=== PATIENT | female | born 1985 ===

== ENCOUNTER 2022-08-30 04:41 | Emergency (ER) | payer MEDICAID, SELFPAY ==
[2022-08-30 04:53] VITALS: BP 131/83; PULSE 70; RESP 18; TEMP 37; O2SAT 100; BMI 31.2
--- NOTE | 2022-08-30 07:32 | PC.NURSE ---
PT NOT IN THE WR OR IN CLOSE VICINITY OF THE ENTRANCE.
== END 2022-08-30 07:32 | disposition left against medical advice (07) ==
PROVIDERS: Emergency Provider Emergency Medicine
DX: F41.9 Anxiety disorder, unspecified (principal)
CPT/HCPCS: 99281

== ENCOUNTER 2022-08-31 12:11 | Emergency (ER) | payer MEDICAID, SELFPAY ==
[2022-08-31 12:36] VITALS: BP 103/43; PULSE 67; RESP 18; TEMP 36.9; O2SAT 98; BMI 31.2
--- NOTE | 2022-08-31 12:36 | ED.ANXIETY ---
HPI - Anxiety General Chief Complaint: Anxiety <SAGRARIO Castaneda - Last Filed: 08/31/22 12:39> Stated Complaint: Anxiety <SAGRARIO Castaneda Last Filed: 08/31/22 12:39> Time Seen by Provider: 08/31/22 13:18 <SAGRARIO Castaneda Last Filed: 08/31/22 12:39> Source: patient <SAGRARIO Banuelos Last Filed: 08/31/22 14:47> Mode of arrival: ambulatory <SAGRARIO Banuelos Last Filed: 08/31/22 14:47> Limitations: no limitations <SAGRARIO Banuelos Last Filed: 08/31/22 14:47> History of Present Illness HPI narrative: 37-year-old female with a history of anxiety and depression presents to the ER for evaluation of increased anxiety. 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 She recently moved here from [place] and has been off her medications for a week and half. She is usually on Abilify 3 mg intramuscular once per month, she is due for this injection today. She is also on Xanax as needed for anxiety and has been off of this for 1 and half weeks. She states she has had headaches, muscle aches, increased depression and anxiety. She has no provider or therapist in the area. She is looking for help. She denies any suicidal or homicidal ideation. She presents with her boyfriend who is supportive of her retrieving help <SAGRARIO Banuelos Last Filed: 08/31/22 14:47> MD complaint: anxiety and heart racing <SAGRARIO Banuelos Last Filed: 08/31/22 14:47> Onset (ago): week(s) <SAGRARIO Banuelos Last Filed: 08/31/22 14:47> Symptoms: palpitations <SAGRARIO Banuelos Last Filed: 08/31/22 14:47> Severity: moderate <SAGRARIO Banuelos Last Filed: 08/31/22 14:47> Quality: intermittent <SAGRARIO Banuelos Last Filed: 08/31/22 14:47> Place: home <SAGRARIO Banuelos Last Filed: 08/31/22 14:47> History of similar episodes: Yes <SAGRARIO Banuelos Last Filed: 08/31/22 14:47> Provoking factors: medication change <SAGRARIO Banuelos Last Filed: 08/31/22 14:47> Relieving factors: medication <SAGRARIO Banuelos Last Filed: 08/31/22 14:47> Associated symptoms: palpitations <SAGRARIO Banuelos Last Filed: 08/31/22 14:47> Related Data Home Medications: Previous Rx's Medication Instructions Recorded alprazolam 1 mg tablet (Xanax) 1 mg PO BID PRN anxiety #10 tabs 08/31/22 aripiprazole 300 mg intramuscular 300 mg IM QMONTH #1 ea 08/31/22 suspension,extended release (Abilify Maintena) aripiprazole 300 mg suspension, 300 mg IM QMONTH #1 ea 08/31/22 extended rel. intramuscular syringe (Abilify Maintena) <SAGRARIO Castaneda Last Filed: 08/31/22 12:39> Allergies/Adverse Reactions: Allergies Allergy/AdvReac Type Severity Reaction Status Date / Time amoxicillin [AMOXICILLIN] Allergy Intermediate HIVES Unverified 05/14/20 16:13 epinephrine [EPINEPHRINE] Allergy Mild RASH Unverified 05/14/20 16:13 ibuprofen [IBUPROFEN] Allergy Mild RASH, hives Unverified 05/14/20 16:13 lidocaine [LIDOCAINE] Allergy Mild RASH Unverified 05/14/20 16:13 hydromorphone [Dilaudid] Allergy Unknown anxiety Verified 08/17/17 00:00 morphine Allergy Unknown hives Verified 08/17/17 00:00 From REGLAN AdvReac Intermediate DYSPHORIA, Uncoded 05/14/20 16:13 RESTLESS From DILAUDID AdvReac Mild HIVES, Uncoded 05/14/20 16:13 SHAKINESS <SAGRARIO Castaneda Last Filed: 08/31/22 12:39> Review of Systems Review of Systems: Yes all other systems are reviewed and are negative <SAGRARIO Banuelos Last Filed: 08/31/22 14:47> PMFSH Social History Social History: Social History Advance Directives: No Advance Directives Information Provided: Yes <SAGRARIO Castaneda - Last Filed: 08/31/22 12:39> Physical Exam Vital Signs: Vital Signs: Last Vital Signs Temp 98.4 F 08/31/22 12:36 Pulse 67 08/31/22 12:36 Resp 18 08/31/22 12:36 BP 103/43 L 08/31/22 12:36 Pulse Ox 98 08/31/22 12:36 O2 Del Method 08/31/22 12:36 BMI result Body Mass Index 31.2 <SAGRARIO Castaneda - Last Filed: 08/31/22 12:39> Vital Signs: Last Vital Signs Temp 98.4 F 08/31/22 12:36 Pulse 67 08/31/22 12:36 Resp 18 08/31/22 12:36 BP 103/43 L 08/31/22 12:36 Pulse Ox 98 08/31/22 12:36 O2 Del Method 08/31/22 12:36 BMI result Body Mass Index 31.2 <SAGRARIO Banuelos - Last Filed: 08/31/22 14:47> Appearance: Alert. Oriented X3. No acute distress. Eyes: Pupils equal, round and reactive to light. ENT: Pharynx normal. Neck: Normal inspection. CVS: Normal heart rate and rhythm. Pulses normal. Respiratory: No respiratory distress. Breath sounds normal. Skin: Skin warm and dry. Normal skin color. Normal skin turgor. No rashes. Extremities: No lower extremity edema. Neuro/psych: Oriented X 3. No motor deficit. No sensory deficit. CN II-XII. normal speech and cognition. No suicidal or homicidal thoughts. Anxious, normal affect. Good insight and judgment. <SAGRARIO Banuelos - Last Filed: 08/31/22 14:47> Course Course Course Narrative: RME--37-year-old female past medical history of anxiety presenting to the ED complaining of increasing anxiety & feeling like her heart is racing/palpitations x today Patient nontoxic appearing in triage, vital signs stable EKG ordered, will hold on anxiolytics until patient in the main ED <SAGRARIO Castaneda - Last Filed: 08/31/22 12:39> Reevaluation(s) Reevaluation #1: EKG is unremarkable. Patient was given 1 mg of Ativan with significant improvement in her symptoms. She is not in crisis. She would like to be discharged. Will give her the number for the [facility] clinic and check a P that will be able to offer her provider and other resources. Will give her prescription for her Abilify Depo, they should be able to administer there. Will send a short prescription for her Xanax until she is able to see somebody in the community. Comfortable discharge home. Return precautions were discussed. Stable for DC home <SAGRARIO Banuelos - Last Filed: 08/31/22 14:47> Medications Administered Discontinued Medications Generic Name Dose Route Start Last Admin Trade Name Freq PRN Reason Stop Dose Admin Lorazepam 1 mg 08/31/22 13:18 08/31/22 14:04 Lorazepam 1 Mg Tablet PO 08/31/22 13:19 1 mg ONCE ONE Administration <SAGRARIO Castaneda Last Filed: 08/31/22 12:39> Medications Administered Discontinued Medications Generic Name Dose Route Start Last Admin Trade Name Freq PRN Reason Stop Dose Admin Lorazepam 1 mg 08/31/22 13:18 08/31/22 14:04 Lorazepam 1 Mg Tablet PO 08/31/22 13:19 1 mg ONCE ONE Administration <SAGRARIO Banuelos Last Filed: 08/31/22 14:47> Medical Decision Making Differential Diagnosis Differential Diagnoses: The differential diagnosis associated with the presentation includes <SAGRARIO Banuelos Last Filed: 08/31/22 14:47> Anxiety, palpitations, depression, cardiac arrhythmia, viral syndrome, thyroid imbalance, electrolyte imbalance, depression, adjustment disorder <SAGRARIO Banuelos Last Filed: 08/31/22 14:47> Independent Interpretation I performed an independent interpretation of an: EKG <SAGRARIO Banuelos Last Filed: 08/31/22 14:47> Interpretation: sinus bradycardia, ventricular rate 54 beats per minute, normal MA interval, normal QTC, no ST segment elevations or depressions. <SAGRARIO Banuelos Last Filed: 08/31/22 14:47> Critical Care Time Critical Care Time Critical Care Time: No <SAGRARIO Banuelos Last Filed: 08/31/22 14:47> Discharge Plan Discharge Clinical Impression: Acute anxiety <SAGRARIO Castaneda - Last Filed: 08/31/22 12:39> Patient Disposition: Home, Self-Care <SAGRARIO Castaneda - Last Filed: 08/31/22 12:39> Instructions: Generalized Anxiety Disorder (ED) <SAGRARIO Castaneda - Last Filed: 08/31/22 12:39> Additional Instructions: FOLLOW-UP WITH [facility] AT 11:09 [facility] in [place]. IF YOU WOULD LIKE TO CALL AHEAD AT 1- [phone]. <SAGRARIO Castaneda - Last Filed: 08/31/22 12:39> Prescriptions: New Abilify Maintena 300 mg suspension,extended rel recon 300 mg IM QMONTH Qty: 1 0RF Abilify Maintena 300 mg suspension,extended rel syring 300 mg IM QMONTH Qty: 1 0RF alprazolam [Xanax] 1 mg tablet 1 mg PO BID PRN (Reason: anxiety) Qty: 10 0RF <SAGRARIO Castaneda - Last Filed: 08/31/22 12:39> Referrals: [facility] [Provider Group] <SAGRARIO Castaneda - Last Filed: 08/31/22 12:39>
--- NOTE | 2022-08-31 12:37 | ECG_ITS ---
Test Reason : palps Blood Pressure : / mmHG Vent. Rate : 054 BPM Atrial Rate : 054 BPM P-R Int : 160 ms QRS Dur : 086 ms QT Int : 418 ms P-R-T Axes : 033 027 033 degrees QTc Int : 396 ms Sinus bradycardia Otherwise normal ECG When compared with ECG of 10-MAY-2016 11:11, No significant change was found Referred By: Martha Diallo Electronically Signed By:SAFIA WISE
[2022-08-31] MEDS: LORazepam 1 MG TABLET PO (14:04)
== END 2022-08-31 14:47 | disposition home or self-care (01) ==
PROVIDERS: Emergency Provider Emergency Medicine Emergency Medical Services
DX: F41.9 Anxiety disorder, unspecified (principal); F32.A Depression, unspecified
CPT/HCPCS: 93005; 99283

== ENCOUNTER 2022-11-08 14:31 | Emergency (ER) | payer MEDICAID, SELFPAY ==
--- NOTE | ~2022-11-08 | CT_ITS ---
EXAMINATION: CT ABDOMEN AND PELVIS WITHOUT CONTRAST CLINICAL INFORMATION: RIGHT back/flank/lower quadrant abd pain x 3 days COMPARISON: Renal CT earlier today, CT abdomen pelvis 08/23/2017 TECHNIQUE: Multidetector volumetric imaging was performed from the superior aspect of the liver through the pubic symphysis. Sagittal and coronal reformatted images were obtained on the technologist's workstation. This CT examination was performed using dose optimization techniques as appropriate, variously including the following: *Automated exposure control *Adjustment of mA and/or kV according to patient size (this includes techniques or standardized protocols for targeted exams where dose is matched to indication/reason for exam; i.e. extremities or head) *Use of iterative reconstruction technique DLP: 514a mGy-cm FINDINGS: LUNG BASES: The visualized lung bases are unremarkable. LIVER, GALLBLADDER, AND BILIARY TREE: The liver is enlarged measuring 19 cm in cephalocaudad dimension but is normal in shape and attenuation. A tiny 5 mm cyst is noted in the right lobe of the liver just below the hemidiaphragm (3:8). No worrisome solid focal hepatic lesion or biliary ductal dilatation is present. Status post cholecystectomy. PANCREAS: Unremarkable. SPLEEN: Unremarkable. ADRENAL GLANDS: Unremarkable. KIDNEYS AND URETERS: The kidneys are normal in size, shape, and attenuation. No hydronephrosis, hydroureter, or calculi seen. No perinephric stranding. BLADDER: Unremarkable. GASTROINTESTINAL TRACT: The small and large bowel are unremarkable aside from some scattered colonic diverticula without diverticulitis. The appendix is unremarkable. ABDOMINAL WALL: No significant hernia is appreciated. LYMPH NODES: Mildly prominent bilateral groin lymph nodes are seen. A few shotty retroperitoneal lymph nodes are seen. There is no retroperitoneal lymphadenopathy noted. VASCULAR: Unremarkable. PELVIC VISCERA: The uterus and adnexa are unremarkable. OSSEOUS STRUCTURES: Unremarkable. CT/CT abdomen pelvis wo IV con IMPRESSION: 1. A cause for the patient's right back, flank and lower quadrant pain has not been found. 2. Incidental note made of mild hepatomegaly, cholecystectomy, colonic diverticulosis without diverticulitis and mildly prominent groin lymph nodes. Fleischner guidelines were followed.
--- NOTE | ~2022-11-08 | US_ITS ---
EXAMINATION: US RETROPERITONEAL LIMITED (RENAL ONLY) CLINICAL INFORMATION: Flank pain, hematuria.. COMPARISON: CT from 08/23/2017 TECHNIQUE: Sonographic evaluation of the kidneys. FINDINGS: RIGHT KIDNEY: 10.8 x 4.3 x 5.4 cm (SAG x AP x TRV). The kidney is normal in size, contour, and echogenicity. Renal cortical thickness is normal. No calculi or focal parenchymal lesions. No hydronephrosis. LEFT KIDNEY: 9.8 x 4.4 x 4.7 cm (SAG x AP x TRV). The kidney is normal in size, contour, and echogenicity. Renal cortical thickness is normal. No calculi or focal parenchymal lesions. No hydronephrosis. US/US renal BI IMPRESSION: Normal appearance of the kidneys.
[2022-11-08 15:08] VITALS: BP 99/58; PULSE 64; RESP 16; TEMP 36.8; O2SAT 99; BMI 33.2
--- NOTE | 2022-11-08 15:11 | ED_ITS ---
HPI - General Adult General Chief complaint: Abdominal Pain <SAGRARIO Castaneda Last Filed: 11/08/22 15:15> Stated complaint: blood in urine, low back pain, bad anxiety <SAGRARIO Castaneda Last Filed: 11/08/22 15:15> Time Seen by Provider: 11/08/22 17:34 <SAGRARIO Castaneda Last Filed: 11/08/22 15:15> Source: patient and family (Spouse at bedside) <SAGRARIO Lawrence Last Filed: 11/08/22 19:09> Mode of arrival: ambulatory <SAGRARIO Lawrence Last Filed: 11/08/22 19:09> Limitations: no limitations <SAGRARIO Lawrence Last Filed: 11/08/22 19:09> History of Present Illness HPI narrative: 37yoF who is just released from being incarcerated yesterday who is prese nting with complaints of right back/flank pain that is radiating to her right lower quadrant for the past 3 days worse today. Reports associated nausea. Reports while she was incarcerated she explained to him that she was having pain and they did a urinalysis and they told her that she had blood in her urine. She reports that she does not actually see the blood although they did a dipstick and this is how they notice. She reports she has been taking [id number] Motrin Tylenol and little to no symptomatic relief. She denies any fevers, chills, chest pain or shortness of breath, vomiting, dysuria, abnormal vaginal discharge, black or bloody stools, diarrhea constipation, cough, sore throat, rashes, lesions or any other symptoms complaints or concerns at this time. <SAGRARIO Lawrence Last Filed: 11/08/22 19:09> MD complaint: Right flank/back pain radiating to right side of abdomen <SAGRARIO Lawrence Last Filed: 11/08/22 19:09> Onset (ago): day(s) (2-3 ) <SAGRARIO Lawrence Last Filed: 11/08/22 19:09> Related Data Home medications: Previous Rx's Medication Instructions Recorded alprazolam 1 mg tablet (Xanax) 1 mg PO BID PRN anxiety #10 tabs 08/31/22 alprazolam 1 mg tablet (Xanax) 1 mg PO BID PRN anxiety #6 tabs 08/31/22 aripiprazole 300 mg intramuscular 300 mg IM QMONTH #1 ea 08/31/22 suspension,extended release (Felisalifjulissa Maintena) aripiprazole 300 mg suspension, 300 mg IM QMONTH #1 ea 08/31/22 extended rel. intramuscular syringe (Felisalifjulissa Maintena) cyclobenzaprine 10 mg tablet 10 mg PO Q8H #14 tabs 11/08/22 nitrofurantoin 100 mg PO BID 7 days #14 caps 11/08/22 monohydrate/macrocrystals 100 mg capsule (Macrobid) <SAGRARIO Castaneda Last Filed: 11/08/22 15:15> Allergies/adverse reactions: Allergies Allergy/AdvReac Type Severity Reaction Status Date / Time amoxicillin [AMOXICILLIN] Allergy Intermediate HIVES Unverified 05/14/20 16:13 epinephrine [EPINEPHRINE] Allergy Mild RASH Unverified 05/14/20 16:13 ibuprofen [IBUPROFEN] Allergy Mild RASH, hives Unverified 05/14/20 16:13 lidocaine [LIDOCAINE] Allergy Mild RASH Unverified 05/14/20 16:13 hydromorphone [Dilaudid] Allergy Unknown anxiety Verified 08/17/17 00:00 morphine Allergy Unknown hives Verified 08/17/17 00:00 From REGLAN AdvReac Intermediate DYSPHORIA, Uncoded 05/14/20 16:13 RESTLESS From DILAUDID AdvReac Mild HIVES, Uncoded 05/14/20 16:13 SHAKINESS <SAGRARIO Castaneda Last Filed: 11/08/22 15:15> Review of Systems Review of Systems: Constitutional : No Fever, No Chills, No Night Sweats, No Fatigue, No Malaise Cardiovascular : No Chest Pain, No SOB Respiratory : No Cough, No Sputum, No Wheezing, No Dyspnea Gastrointestinal : + Nausea, No Vomiting, No Diarrhea, + abdominal Pain, No Hematochezia, No Melena Genitourinary : No irregular bleeding, No Dysuria, No Urinary Frequency, No Hematuria,No Urinary Incontinence, No Urgency, + Flank Pain Musculoskeletal : No joint pain, No Myalgias, No Joint Swelling Skin : No Skin Lesions, No rash Neuro : No Weakness, No Numbness, No Paresthesias, No Loss of Consciousness, No Dizziness, No Headache Heme/Lymph: No Lymphadenopathy Endocrine : No Temperature Intolerance <SAGRARIO Lawrence - Last Filed: 11/08/22 19:09> Yes all other systems are reviewed and are negative <SAGRARIO Lawrence - Last Filed: 11/08/22 19:09> [facility] Past Medical History Attestation statement: The following information was validated with the patient. <SGARARIO Lawrence - Last Filed: 11/08/22 19:09> Source: old records reviewed, obtained from family and nursing notes reviewed <SAGRARIO Lawrence - Last Filed: 11/08/22 19:09> Social History Social History: Social History Advance Directives: No Advance Directives Information Provided: Yes <SAGRARIO Castaneda - Last Filed: 11/08/22 15:15> Physical Exam ED Vital Signs: Vital Signs - 24 hr 11/08/22 15:08 Temperature 98.2 F Pulse Rate 64 Respiratory Rate 16 Blood Pressure 99/58 L Pulse Oximetry 99 Oxygen Delivery Method Room Air BMI result Body Mass Index 33.2 <SAGRARIO Castaneda - Last Filed: 11/08/22 15:15> Vital Signs - 24 hr 11/08/22 15:08 Temperature 98.2 F Pulse Rate 64 Respiratory Rate 16 Blood Pressure 99/58 L Pulse Oximetry 99 Oxygen Delivery Method Room Air BMI result Body Mass Index 33.2 Vital signs have been reviewed and all within normal limits <SAGRARIO Lawrence - Last Filed: 11/08/22 19:09> Appearance: Alert. Oriented X3. No acute distress. Head: Normal external exam. Normocephalic. Eyes: PERRLA. EOMI. Conjunctiva and sclera normal. Eyelids normal. ENT: Pharynx normal. Uvula midline. Moist mucous membranes. No trismus noted. No drooling noted. No muffled voice noted. Neck: Normal inspection. Neck supple. FROM. No adenopathy. No meningeal signs. CVS: Normal heart rate and rhythm. Heart sound normal. No murmurs noted. Pulses normal throughout. Respiratory: No respiratory distress. Painless inspiration. Breath sounds normal. No wheezes/rales/rhonchi noted. Chest nontender. No accessory muscle usage noted or decreased air movement noted. Abdomen: Soft and right side of abdomen/flank area. Nondistended. No guarding. No rigidity. Bowel sounds normal in all 4 quadrants. No distention noted. No organomegaly noted. No visible injury noted. No rebound tenderness. Negative Rovsing sign. Negative obturator's sign. Negative psoas sign. Negative Rosa sign. Back: + Right CVA tenderness. No Left sided CVA tenderness. Full range of motion noted. Skin: Skin warm and dry. Normal skin color. Normal skin turgor. No rashes/l esions/lacerations noted. Extremities: Extremities exhibit normal range of motion. Extremities nontender. Neuro: Oriented X 3. No motor deficit. No sensory deficit. Reflexes normal. Normal steady gait. CN's II-XII intact bilaterally? <SAGRARIO Lawrence - Last Filed: 11/08/22 19:09> Course Course Course Narrative: RME-- 37 yo F with PMHx anxiety/depression c/o hematuria, bilateral low back pain radiating to lower abdomen x3 days. Pain is constant w/assoc nausea. Denies vomiting/dysuria, vaginal bleeding +L CVAT noted, abdomen soft and nontender Labs, UA, preg, Renal US ordered <SAGRARIO Castaneda - Last Filed: 11/08/22 15:15> Reevaluation(s) Reevaluation #1: 37yoF who is just released from being incarcerated yesterday who is presen ting with complaints of right back/flank pain that is radiating to her right lower quadrant for the past 3 days worse today. Reports while she was incarcerated she explained to him that she was having pain and they did a urinalysis and they told her that she had blood in her urine. She reports that she does not actually see the blood although they did a dipstick and this is how they notice. She reports she has been taking [id number] Motrin Tylenol and little to no symptomatic relief. This is a 37-year-old female with right flank/back pain radiating to her right lower quadrant most concerning for kidney stone versus UTI. Differential diagnosis possibly appendicitis although less likely. Abdominal exam without peritoneal signs. No evidence of acute abdomen at this time. Well appearing. Low suspicion for acute hepatobiliary disease (includng acute cholecystitis), acute infectious processes (pneumonia, hepatitis, pyelonephritis), vascular catastrophe, bowel obstruction or viscus perforation. Presentation not consistent with other acute, emergent causes of abdominal pain at this time. Labs reviewed patient's chloride 113. Anion gap 11. Otherwise all other labs are within normal limits. UA revealed a trace of leukocytes and 6-10 white blood cells and a negative test. At this time CT scan abdomen pelvis without IV contrast pending. Will re- evaluate. <SAGRARIO Lawrence - Last Filed: 11/08/22 19:09> Time: 15:12 <SAGRARIO Lawrence - Last Filed: 11/08/22 19:09> Reevaluation #2: CT scan abdomen pelvis with IV contrast negative for any acute processes she is only noted to have colonic diverticulosis without diverticulitis and prominent groin lymph nodes otherwise appendix is within normal limits no kidney stones. Therefore at this time patient most likely muscular skeletal pain. Will DC home with symptomatic treatment and antibiotics for UTI and instructions return if any new or worsening symptoms to follow up with primary care provider. Patient was pulse at bedside understand agree this plan. <SAGRARIO Lawrence - Last Filed: 11/08/22 19:09> Time: 19:07 <SAGRARIO Lawrence - Last Filed: 11/08/22 19:09> Medical Decision Making Lab Data MDM Lab Attestation statement: I reviewed the patient's lab results. <SAGRARIO Lawrence - Last Filed: 11/08/22 19:09> Result Diagrams: 11/08/22 18:01 11/08/22 18:01 <SAGRARIO Castaneda - Last Filed: 11/08/22 15:15> Labs: Lab Results 11/08/22 11/08/22 11/08/22 Range/Units 18:01 18:01 18:01 WBC 7.5 (4.8-10.8) X10*3/uL RBC 4.51 (4.20-5.50) X10*6/uL Hgb 12.0 (12.0-16.0) g/dl Hct 36.9 L (37.0-47.0) % MCV 81.8 (80.0-98.0) fL MCH 26.6 L (27.0-33.0) pg MCHC 32.5 (31.0-35.0) g/dl RDW 13.4 (11.0-16.0) % Plt Count 208 (160-400) X10*3/uL MPV 11.2 (9.4-12.3) fL Immature Gran % (Auto) 0.5 H (0.0-0.4) % Neut % (Auto) 51.6 (45-73) % Lymph % (Auto) 41.6 H (20-40) % [place] % (Auto) 5.2 (2-11) % Eos % (Auto) 0.8 (0-4) % Baso % (Auto) 0.3 (0-2) % Lymph # (Auto) 3.1 (1.2-4.9) X10*3/uL [place] # (Auto) 0.4 (0.1-1.2) X10*3/uL Eos # (Auto) 0.1 (0.0-0.4) X10*3/uL Baso # (Auto) 0.0 (0.0-0.2) X10*3/uL Abs Immat Gran (auto) 0.04 H (0.00-0.03) X10*3/uL Absolute Neuts (auto) 3.9 (2.0-8.3) x10*3/uL Absolute Nucleated RBC 0.000 (0.0-0.012) X10*3/uL Nucleated RBC % (auto) 0.0 (0.0-0.2) /100WBC Sodium 144 (135-145) mmol/L Potassium 4.4 (3.3-5.1) mmol/L Chloride 113 H (96-108) mmol/L Carbon Dioxide 24 (22-29) mmol/L Anion Gap 11 L (12-20) BUN 12 (9-16) mg/dL Creatinine 0.75 (0.5-1.4) mg/dL Estim Creat Clear Calc 96.1 Estimated GFR > 60 Random Glucose 104 (60-115) mg/dL Calcium 8.8 (8.4-10.2) mg/dL Magnesium 2.1 (1.6-2.6) mg/dL Total Bilirubin 0.5 (0.0-1.0) mg/dL Direct Bilirubin < 0.2 (0.0-0.5) mg/dL AST 14 (5-31) U/L ALT 19 (0-31) U/L Alkaline Phosphatase 45 (39-117) U/L Total Protein 6.6 (6.5-8.0) g/dL Albumin 4.1 (3.5-5.0) g/dL Lipase 14 (8-78) U/L Urine Color Yellow Urine Appearance Clear Urine pH 6.5 (5.0-9.0) Ur Specific [place] 1.025 (1.005-1.025) Urine Protein Negative (Neg-Trace) mg/dL Urine Glucose (UA) Negative (Negative) mg/dL Urine Ketones Trace (Negative) mg/dL Urine Blood Negative (Negative) Urine Nitrite Negative (Negative) Ur Leukocyte Esterase Trace H (Negative) Urine RBC 6-10 H (0-2) /HPF Urine WBC 0-5 (0-5) /HPF Ur Squamous Epith Cells 3-5 (0-2) /HPF Urine Bacteria None Seen (None Seen) Hyaline Casts 0-2 (0-2) /LPF Urine Test (NEGATIVE) 11/08/22 Range/Units 18:01 WBC (4.8-10.8) X10*3/uL RBC (4.20-5.50) X10*6/uL Hgb (12.0-16.0) g/dl Hct (37.0-47.0) % MCV (80.0-98.0) fL MCH (27.0-33.0) pg MCHC (31.0-35.0) g/dl RDW (11.0-16.0) % Plt Count (160-400) X10*3/uL MPV (9.4-12.3) fL Immature Gran % (Auto) (0.0-0.4) % Neut % (Auto) (45-73) % Lymph % (Auto) (20-40) % [place] % (Auto) (2-11) % Eos % (Auto) (0-4) % Baso % (Auto) (0-2) % Lymph # (Auto) (1.2-4.9) X10*3/uL [place] # (Auto) (0.1-1.2) X10*3/uL Eos # (Auto) (0.0-0.4) X10*3/uL Baso # (Auto) (0.0-0.2) X10*3/uL Abs Immat Gran (auto) (0.00-0.03) X10*3/uL Absolute Neuts (auto) (2.0-8.3) x10*3/uL Absolute Nucleated RBC (0.0-0.012) X10*3/uL Nucleated RBC % (auto) (0.0-0.2) /100WBC Sodium (135-145) mmol/L Potassium (3.3-5.1) mmol/L Chloride (96-108) mmol/L Carbon Dioxide (22-29) mmol/L Anion Gap (12-20) BUN (9-16) mg/dL Creatinine (0.5-1.4) mg/dL Estim Creat Clear Calc Estimated GFR Random Glucose (60-115) mg/dL Calcium (8.4-10.2) mg/dL Magnesium (1.6-2.6) mg/dL Total Bilirubin (0.0-1.0) mg/dL Direct Bilirubin (0.0-0.5) mg/dL AST (5-31) U/L ALT (0-31) U/L Alkaline Phosphatase (39-117) U/L Total Protein (6.5-8.0) g/dL Albumin (3.5-5.0) g/dL Lipase (8-78) U/L Urine Color Urine Appearance Urine pH (5.0-9.0) Ur Specific [place] (1.005-1.025) Urine Protein (Neg-Trace) mg/dL Urine Glucose (UA) (Negative) mg/dL Urine Ketones (Negative) mg/dL Urine Blood (Negative) Urine Nitrite (Negative) Ur Leukocyte Esterase (Negative) Urine RBC (0-2) /HPF Urine WBC (0-5) /HPF Ur Squamous Epith Cells (0-2) /HPF Urine Bacteria (None Seen) Hyaline Casts (0-2) /LPF Urine Test NEGATIVE (NEGATIVE) <SAGRARIO Castaneda - Last Filed: 03/14/23 15:15> Lab Results 11/08/22 11/08/22 11/08/22 Range/Units 18:01 18:01 18:01 WBC 7.5 (4.8-10.8) X10*3/uL RBC 4.51 (4.20-5.50) X10*6/uL Hgb 12.0 (12.0-16.0) g/dl Hct 36.9 L (37.0-47.0) % MCV 81.8 (80.0-98.0) fL MCH 26.6 L (27.0-33.0) pg MCHC 32.5 (31.0-35.0) g/dl RDW 13.4 (11.0-16.0) % Plt Count 208 (160-400) X10*3/uL MPV 11.2 (9.4-12.3) fL Immature Gran % (Auto) 0.5 H (0.0-0.4) % Neut % (Auto) 51.6 (45-73) % Lymph % (Auto) 41.6 H (20-40) % [place] % (Auto) 5.2 (2-11) % Eos % (Auto) 0.8 (0-4) % Baso % (Auto) 0.3 (0-2) % Lymph # (Auto) 3.1 (1.2-4.9) X10*3/uL [place] # (Auto) 0.4 (0.1-1.2) X10*3/uL Eos # (Auto) 0.1 (0.0-0.4) X10*3/uL Baso # (Auto) 0.0 (0.0-0.2) X10*3/uL Abs Immat Gran (auto) 0.04 H (0.00-0.03) X10*3/uL Absolute Neuts (auto) 3.9 (2.0-8.3) x10*3/uL Absolute Nucleated RBC 0.000 (0.0-0.012) X10*3/uL Nucleated RBC % (auto) 0.0 (0.0-0.2) /100WBC Sodium 144 (135-145) mmol/L Potassium 4.4 (3.3-5.1) mmol/L Chloride 113 H (96-108) mmol/L Carbon Dioxide 24 (22-29) mmol/L Anion Gap 11 L (12-20) BUN 12 (9-16) mg/dL Creatinine 0.75 (0.5-1.4) mg/dL Estim Creat Clear Calc 96.1 Estimated GFR > 60 Random Glucose 104 (60-115) mg/dL Calcium 8.8 (8.4-10.2) mg/dL Magnesium 2.1 (1.6-2.6) mg/dL Total Bilirubin 0.5 (0.0-1.0) mg/dL Direct Bilirubin < 0.2 (0.0-0.5) mg/dL AST 14 (5-31) U/L ALT 19 (0-31) U/L Alkaline Phosphatase 45 (39-117) U/L Total Protein 6.6 (6.5-8.0) g/dL Albumin 4.1 (3.5-5.0) g/dL Lipase 14 (8-78) U/L Urine Color Yellow Urine Appearance Clear Urine pH 6.5 (5.0-9.0) Ur Specific [place] 1.025 (1.005-1.025) Urine Protein Negative (Neg-Trace) mg/dL Urine Glucose (UA) Negative (Negative) mg/dL Urine Ketones Trace (Negative) mg/dL Urine Blood Negative (Negative) Urine Nitrite Negative (Negative) Ur Leukocyte Esterase Trace H (Negative) Urine RBC 6-10 H (0-2) /HPF Urine WBC 0-5 (0-5) /HPF Ur Squamous Epith Cells 3-5 (0-2) /HPF Urine Bacteria None Seen (None Seen) Hyaline Casts 0-2 (0-2) /LPF Urine Test (NEGATIVE) 11/08/22 Range/Units 18:01 WBC (4.8-10.8) X10*3/uL RBC (4.20-5.50) X10*6/uL Hgb (12.0-16.0) g/dl Hct (37.0-47.0) % MCV (80.0-98.0) fL MCH (27.0-33.0) pg MCHC (31.0-35.0) g/dl RDW (11.0-16.0) % Plt Count (160-400) X10*3/uL MPV (9.4-12.3) fL Immature Gran % (Auto) (0.0-0.4) % Neut % (Auto) (45-73) % Lymph % (Auto) (20-40) % [place] % (Auto) (2-11) % Eos % (Auto) (0-4) % Baso % (Auto) (0-2) % Lymph # (Auto) (1.2-4.9) X10*3/uL [place] # (Auto) (0.1-1.2) X10*3/uL Eos # (Auto) (0.0-0.4) X10*3/uL Baso # (Auto) (0.0-0.2) X10*3/uL Abs Immat Gran (auto) (0.00-0.03) X10*3/uL Absolute Neuts (auto) (2.0-8.3) x10*3/uL Absolute Nucleated RBC (0.0-0.012) X10*3/uL Nucleated RBC % (auto) (0.0-0.2) /100WBC Sodium (135-145) mmol/L Potassium (3.3-5.1) mmol/L Chloride (96-108) mmol/L Carbon Dioxide (22-29) mmol/L Anion Gap (12-20) BUN (9-16) mg/dL Creatinine (0.5-1.4) mg/dL Estim Creat Clear Calc Estimated GFR Random Glucose (60-115) mg/dL Calcium (8.4-10.2) mg/dL Magnesium (1.6-2.6) mg/dL Total Bilirubin (0.0-1.0) mg/dL Direct Bilirubin (0.0-0.5) mg/dL AST (5-31) U/L ALT (0-31) U/L Alkaline Phosphatase (39-117) U/L Total Protein (6.5-8.0) g/dL Albumin (3.5-5.0) g/dL Lipase (8-78) U/L Urine Color Urine Appearance Urine pH (5.0-9.0) Ur Specific [place] (1.005-1.025) Urine Protein (Neg-Trace) mg/dL Urine Glucose (UA) (Negative) mg/dL Urine Ketones (Negative) mg/dL Urine Blood (Negative) Urine Nitrite (Negative) Ur Leukocyte Esterase (Negative) Urine RBC (0-2) /HPF Urine WBC (0-5) /HPF Ur Squamous Epith Cells (0-2) /HPF Urine Bacteria (None Seen) Hyaline Casts (0-2) /LPF Urine Test NEGATIVE (NEGATIVE) <SAGRARIO Lawrence - Last Filed: 11/08/22 19:09> Independent Interpretation I performed an independent interpretation of an: CT Scan <SAGRARIO Lawrence - Last Filed: 11/08/22 19:09> Radiology Impression Discussion of test interpretation with radiology: I have reviewed the radiologist's reading. <SAGRARIO Lawrence - Last Filed: 11/08/22 19:09> Radiologist Impression: FINDINGS: LUNG BASES: The visualized lung bases are unremarkable.? LIVER, GALLBLADDER, AND BILIARY TREE: The liver is enlarged measuring 19 cm in cephalocaudad dimension but is normal in shape and attenuation. A tiny 5 mm cyst is noted in the right lobe of the liver just below the hemidiaphragm (3:8). No worrisome solid focal hepatic lesion or biliary ductal dilatation is present. Status post cholecystectomy.? PANCREAS: Unremarkable.? SPLEEN: Unremarkable.? ADRENAL GLANDS: Unremarkable.? KIDNEYS AND URETERS: The kidneys are normal in size, shape, and attenuation. No hydronephrosis, hydroureter, or calculi seen. No perinephric stranding. ? BLADDER: Unremarkable.? GASTROINTESTINAL TRACT: The small and large bowel are unremarkable aside from some scattered colonic diverticula without diverticulitis. The appendix is unremarkable.? ABDOMINAL WALL: No significant hernia is appreciated.? LYMPH NODES: Mildly prominent bilateral groin lymph nodes are seen. A few shotty retroperitoneal lymph nodes are seen. There is no retroperitoneal lymphadenopathy noted.? VASCULAR: Unremarkable. PELVIC VISCERA: The uterus and adnexa are unremarkable.? OSSEOUS STRUCTURES: Unremarkable.? CT/CT abdomen pelvis wo IV con IMPRESSION: 1.? A cause for the patient's right back, flank and lower quadrant pain has not been found. 2.? Incidental note made of mild hepatomegaly, cholecystectomy, colonic diverticulosis without diverticulitis and mildly prominent groin lymph nodes. ? Fleischner guidelines were followed. FINDINGS: RIGHT KIDNEY: 10.8 x 4.3 x 5.4 cm (SAG x AP x TRV). The kidney is normal in size, contour, and echogenicity. Renal cortical thickness is normal. No calculi or focal parenchymal lesions. No hydronephrosis. LEFT KIDNEY: 9.8 x 4.4 x 4.7 cm (SAG x AP x TRV). The kidney is normal in size, contour, and echogenicity. Renal cortical thickness is normal. No calculi or focal parenchymal lesions. No hydronephrosis. US/US renal BI IMPRESSION: Normal appearance of the kidneys. <SAGRARIO Lawrence - Last Filed: 11/08/22 19:09> Independent Historian Clinical information obtained from an independent historian. History obtained from or confirmed by: Spouse <SAGRARIO Lawrence - Last Filed: 11/08/22 19:09> Discharge Plan Discharge Clinical Impression: Right sided abdominal pain, UTI (urinary tract infection) <SAGRARIO Castaneda - Last Filed: 11/08/22 15:15> Patient Disposition: Home, Self-Care <SAGRARIO Castaneda - Last Filed: 11/08/22 15:15> Instructions: Urinary Tract Infection in Women (ED) <SAGRARIO Castaneda - Last Filed: 11/08/22 15:15> Prescriptions: New nitrofurantoin monohyd/m-cryst [Macrobid] 100 mg capsule 100 mg PO BID 7 Days Qty: 14 0RF Rx Instructions: must administer with a meal/food cyclobenzaprine 10 mg tablet 10 mg PO Q8H Qty: 14 0RF No Action Abilify Maintena 300 mg suspension,extended rel recon 300 mg IM QMONTH Qty: 1 0RF Abilify Maintena 300 mg suspension,extended rel syring 300 mg IM QMONTH Qty: 1 0RF alprazolam [Xanax] 1 mg tablet 1 mg PO BID PRN (Reason: anxiety) Qty: 10 0RF alprazolam [Xanax] 1 mg tablet 1 mg PO BID PRN (Reason: anxiety) Qty: 6 0RF <SAGRARIO Castaneda - Last Filed: 11/08/22 15:15> Referrals: Physician,Unknown J [Primary Care Provider] - (Your PCP as needed) <SAGRARIO Castaneda - Last Filed: 11/08/22 15:15> Stand Alone Forms: Work/School Release <SAGRARIO Castaneda - Last Filed: 11/08/22 15:15>
[2022-11-08 18:13] LABS: MANUAL DIFF FLAG NO
[2022-11-08 18:17] LABS: Appearance Urine Clear; Color Urine Yellow; Glucose Urine UA Negative (Negative); Leukocyte Esterase Urine Trace (Negative); Nitrite Urine Negative (Negative); PH 6.5 (5.0-9.0); Specific Gravity - Urine 1.025 (1.005-1.025); UMIC TRIGGER UACC YES; Urine Blood Negative (Negative); Urine Ketones Trace mg/dL (Negative); Urine Protein Negative (Neg-Trace)
[2022-11-08 18:19] LABS: Basophils Percent Auto 0.3 % (0-2); Eosinophils Absolute Auto 0.1 X10*3/uL (0.0-0.4); Eosinophils Percent Auto 0.8 % (0-4); Hematocrit 36.9 % (37.0-47.0); Imm Gran Abs Auto 0.04 X10*3/uL (0.00-0.03); Imm Gran Pct Auto 0.5 % (0.0-0.4); Lymphocytes Absolute Auto 3.1 X10*3/uL (1.2-4.9); Lymphocytes Percent Auto 41.6 % (20-40); Mean Corpuscular HGB Conc 32.5 g/dl (31.0-35.0); Mean Corpuscular Hemoglobin 26.6 pg (27.0-33.0); Mean Corpuscular Volume 81.8 fL (80.0-98.0); Mean Platelet Volume 11.2 fL (9.4-12.3); Monocytes Absolute Auto 0.4 X10*3/uL (0.1-1.2); Monocytes Percent Auto 5.2 % (2-11); Neutrophils Absolute Auto 3.9 x10*3/uL (2.0-8.3); Neutrophils Percent Auto 51.6 % (45-73); Platelet Count 208 X10*3/uL (160-400); Red Blood Count 4.51 X10*6/uL (4.20-5.50); Red Cell Distribution Width 13.4 % (11.0-16.0); UPreg QC Valid YES; Urine Pregnancy NEGATIVE (NEGATIVE); White Blood Count 7.5 X10*3/uL (4.8-10.8)
[2022-11-08 18:27] LABS: Bacteria Urine None Seen (None Seen); Hyaline Casts Urine 0-2 /LPF (0-2); WBC Urine 0-5 /HPF (0-5)
[2022-11-08 18:34] LABS: Alanine Aminotransferase 19 U/L (0-31); Albumin Level 4.1 g/dL (3.5-5.0); Alkaline Phosphatase 45 U/L (39-117); Anion Gap 11 (12-20); Aspartate Amino Transferase 14 U/L (5-31); Bilirubin Direct < 0.2 mg/dL (0.0-0.5); Bilirubin Total 0.5 mg/dL (0.0-1.0); Blood Urea Nitrogen 12 mg/dL (9-16); Calcium 8.8 mg/dL (8.4-10.2); Carbon Dioxide 24 mmol/L (22-29); Chloride 113 mmol/L (96-108); Creatinine Clr Calc Pharmacy 96.1; Estimated Glomerular Filt Rate > 60; Glucose Random 104 mg/dL (60-115); Lipase 14 U/L (8-78); Magnesium 2.1 mg/dL (1.6-2.6); Potassium 4.4 mmol/L (3.3-5.1); Sodium 144 mmol/L (135-145); Total Protein 6.6 g/dL (6.5-8.0)
[2022-11-08] MEDS: Nitrofurantoin Monohyd/M-Cryst 100 MG CAPSULE PO (19:15)
[2022-11-08] MEDS: Cyclobenzaprine HCl 10 MG TABLET PO (19:16)
== END 2022-11-08 19:19 | disposition home or self-care (01) ==
PROVIDERS: Physician Assistant; Emergency Provider Internal Medicine
DX: R10.31 Right lower quadrant pain (principal); N39.0 Urinary tract infection, site not specified; Z79.899 Other long term (current) drug therapy
CPT/HCPCS: 36415; 74176; 76775; 80048; 80076; 81001; 81025; 83690; 83735; 85025; 99283; 99284

== ENCOUNTER 2023-03-03 14:19 | Emergency (ER) | payer MEDICAID, SELFPAY ==
--- NOTE | 2023-03-03 14:26 | ED_ITS ---
HPI - General Adult General Chief complaint: Psychiatric Symptoms Stated complaint: anxiety Time Seen by Provider: 03/03/23 15:07 Related Data Home Medications Medication Instructions Recorded Confirmed albuterol sulfate 90 mcg/actuation 1 inh inhalation QID PRN Wheezing 03/03/23 03/03/23 aerosol inhaler Previous Rx's Medication Instructions Recorded nitrofurantoin 100 mg PO Q12H 7 days #14 caps 03/03/23 monohydrate/macrocrystals 100 mg capsule (Macrobid) Allergies Allergy/AdvReac Type Severity Reaction Status Date / Time amoxicillin [AMOXICILLIN] Allergy Intermediate HIVES Verified 03/03/23 14:27 epinephrine [EPINEPHRINE] Allergy Mild RASH Verified 03/03/23 14:27 ibuprofen [IBUPROFEN] Allergy Mild RASH, hives Verified 03/03/23 14:27 lidocaine [LIDOCAINE] Allergy Mild RASH Verified 03/03/23 14:27 hydromorphone [Dilaudid] Allergy Unknown anxiety Verified 03/03/23 14:27 morphine Allergy Unknown hives Verified 03/03/23 14:27 From REGLAN AdvReac Intermediate DYSPHORIA, Uncoded 03/03/23 14:27 RESTLESS From DILAUDID AdvReac Mild HIVES, Uncoded 03/03/23 14:27 SHAKINESS PMFSH Social History Social History Alcohol intake: current Smoked in Last 30 Days: Yes Use of substances other than those prescribed or required for medical reasons: Yes Substance Use Type: Crack/Cocaine Advance Directives: No Advance Directives Information Provided: No Patient : No Physical Exam ED Vital Signs: Vital Signs - 24 hr 03/03/23 14:27 Temperature 98 F Pulse Rate 90 Respiratory Rate 18 Blood Pressure 130/59 L Pulse Oximetry 100 Oxygen Delivery Method Room Air BMI result Body Mass Index 30.2 Course Course Course Narrative: This is an RME: Additional HPI, ROS, PE not included below will be deferred to primary provider.38-year-old female with a history of anxiety and depression presents to the ER for evaluation of increased anxiety and intermittent sI w/o plan X2 weeks, off meds for 7 months Plan- med clearance eval by behavioral health team. Medications Administered Discontinued Medications Generic Name Dose Route Start Last Admin Trade Name Freq PRN Reason Stop Dose Admin Lorazepam 1 mg 03/03/23 14:27 03/03/23 14:54 Lorazepam 1 Mg Tablet PO 03/03/23 14:28 1 mg ONCE ONE Administration Nitrofurantoin Macrocrystals 100 mg 03/03/23 15:20 03/03/23 15:55 Nitrofurantoin Monohyd/M-Cryst 100 Mg Capsule PO 03/03/23 15:21 100 mg ONCE ONE Administration Medical Decision Making Lab Data 03/03/23 16:30 03/03/23 16:30 Labs: Lab Results 03/03/23 03/03/23 03/03/23 Range/Units 14:50 14:50 14:50 WBC (4.8-10.8) X10*3/uL RBC (4.20-5.50) X10*6/uL Hgb (12.0-16.0) g/dl Hct (37.0-47.0) % MCV (80.0-98.0) fL MCH (27.0-33.0) pg MCHC (31.0-35.0) g/dl RDW (11.0-16.0) % Plt Count (160-400) X10*3/uL MPV (9.4-12.3) fL Immature Gran % (Auto) (0.0-0.4) % Neut % (Auto) (45-73) % Lymph % (Auto) (20-40) % [place] % (Auto) (2-11) % Eos % (Auto) (0-4) % Baso % (Auto) (0-2) % Lymph # (Auto) (1.2-4.9) X10*3/uL [place] # (Auto) (0.1-1.2) X10*3/uL Eos # (Auto) (0.0-0.4) X10*3/uL Baso # (Auto) (0.0-0.2) X10*3/uL Abs Immat Gran (auto) (0.00-0.03) X10*3/uL Absolute Neuts (auto) (2.0-8.3) x10*3/uL Absolute Nucleated RBC (0.0-0.012) X10*3/uL Nucleated RBC % (auto) (0.0-0.2) /100WBC Sodium (135-145) mmol/L Potassium (3.3-5.1) mmol/L Chloride (96-108) mmol/L Carbon Dioxide (22-29) mmol/L Anion Gap (12-20) BUN (9-16) mg/dL Creatinine (0.5-1.4) mg/dL Estim Creat Clear Calc Estimated GFR Random Glucose (60-115) mg/dL Calcium (8.4-10.2) mg/dL Magnesium (1.6-2.6) mg/dL Total Bilirubin (0.0-1.0) mg/dL AST (5-31) U/L ALT (0-31) U/L Alkaline Phosphatase (39-117) U/L Total Protein (6.5-8.0) g/dL Albumin (3.5-5.0) g/dL Urine Color Yellow Urine Appearance Clear Urine pH 6.0 (5.0-9.0) Ur Specific [place] 1.015 (1.005-1.025) Urine Protein Trace (Neg-Trace) mg/dL Urine Glucose (UA) Negative (Negative) mg/dL Urine Ketones Negative (Negative) mg/dL Urine Blood Moderate (2+) H (Negative) Urine Nitrite Positive H (Negative) Ur Leukocyte Esterase Moderate (2+) H (Negative) Urine RBC 3-5 H (0-2) /HPF Urine WBC >50 H (0-5) /HPF Ur Squamous Epith Cells 0-2 (0-2) /HPF Urine Bacteria 4+ (None Seen) Hyaline Casts 0-2 (0-2) /LPF Salicylates (15-30) mg/dL Urine Opiates Screen Not Detected (Not Detect) Urine Fentanyl Screen Not Detected (Not Detect) Acetaminophen (<30) mcg/mL Ur Barbiturates Screen Not Detected (Not Detect) Ur Phencyclidine Scrn Not Detected (Not Detect) Ur Amphetamines Screen Not Detected (Not Detect) U Benzodiazepines Scrn Not Detected (Not Detect) Urine Cocaine Screen POSITIVE H (Not Detect) U Marijuana (THC) Screen Not Detected (Not Detect) Ethyl Alcohol mg/dL COVID-19 (JOSE) Negative (Negative) COVID-19 Clin Com See Note 03/03/23 03/03/23 03/03/23 Range/Units 16:30 16:30 16:30 WBC 10.3 (4.8-10.8) X10*3/uL RBC 4.51 (4.20-5.50) X10*6/uL Hgb 11.8 L (12.0-16.0) g/dl Hct 36.1 L (37.0-47.0) % MCV 80.0 (80.0-98.0) fL MCH 26.2 L (27.0-33.0) pg MCHC 32.7 (31.0-35.0) g/dl RDW 13.2 (11.0-16.0) % Plt Count 237 (160-400) X10*3/uL MPV 10.6 (9.4-12.3) fL Immature Gran % (Auto) 0.4 (0.0-0.4) % Neut % (Auto) 66.4 (45-73) % Lymph % (Auto) 28.7 (20-40) % [place] % (Auto) 3.9 (2-11) % Eos % (Auto) 0.5 (0-4) % Baso % (Auto) 0.1 (0-2) % Lymph # (Auto) 2.9 (1.2-4.9) X10*3/uL [place] # (Auto) 0.4 (0.1-1.2) X10*3/uL Eos # (Auto) 0.1 (0.0-0.4) X10*3/uL Baso # (Auto) 0.0 (0.0-0.2) X10*3/uL Abs Immat Gran (auto) 0.04 H (0.00-0.03) X10*3/uL Absolute Neuts (auto) 6.8 (2.0-8.3) x10*3/uL Absolute Nucleated RBC 0.000 (0.0-0.012) X10*3/uL Nucleated RBC % (auto) 0.0 (0.0-0.2) /100WBC Sodium 142 (135-145) mmol/L Potassium 3.5 D (3.3-5.1) mmol/L Chloride 108 (96-108) mmol/L Carbon Dioxide 25 (22-29) mmol/L Anion Gap 13 (12-20) BUN 6 L (9-16) mg/dL Creatinine 0.82 (0.5-1.4) mg/dL Estim Creat Clear Calc 86.4 Estimated GFR > 60 Random Glucose 117 H (60-115) mg/dL Calcium 10.3 H D (8.4-10.2) mg/dL Magnesium 2.2 (1.6-2.6) mg/dL Total Bilirubin 0.6 (0.0-1.0) mg/dL AST 15 (5-31) U/L ALT 11 (0-31) U/L Alkaline Phosphatase 60 (39-117) U/L Total Protein 7.6 (6.5-8.0) g/dL Albumin 4.4 (3.5-5.0) g/dL Urine Color Urine Appearance Urine pH (5.0-9.0) Ur Specific [place] (1.005-1.025) Urine Protein (Neg-Trace) mg/dL Urine Glucose (UA) (Negative) mg/dL Urine Ketones (Negative) mg/dL Urine Blood (Negative) Urine Nitrite (Negative) Ur Leukocyte Esterase (Negative) Urine RBC (0-2) /HPF Urine WBC (0-5) /HPF Ur Squamous Epith Cells (0-2) /HPF Urine Bacteria (None Seen) Hyaline Casts (0-2) /LPF Salicylates < 5.0 L (15-30) mg/dL Urine Opiates Screen (Not Detect) Urine Fentanyl Screen (Not Detect) Acetaminophen < 17 (<30) mcg/mL Ur Barbiturates Screen (Not Detect) Ur Phencyclidine Scrn (Not Detect) Ur Amphetamines Screen (Not Detect) U Benzodiazepines Scrn (Not Detect) Urine Cocaine Screen (Not Detect) U Marijuana (THC) Screen (Not Detect) Ethyl Alcohol < 10 mg/dL COVID-19 (JOSE) (Negative) COVID-19 Clin Com Discharge Plan Discharge Clinical Impression: Substance abuse, Suicidal ideation, Urinary tract infection Patient Disposition: Home, Self-Care Instructions: Urinary Tract Infection in Women (DC) Prescriptions: New nitrofurantoin monohyd/m-cryst [Macrobid] 100 mg capsule 100 mg PO Q12H 7 Days Qty: 14 0RF Rx Instructions: must administer with a meal/food No Action albuterol sulfate 90 mcg/actuation Hfa Aerosol Inhaler 1 inh INHALATION QID PRN (Reason: Wheezing) Interventions: [place]-Suicide Risk Severity Scale Last Done: 03/03/23 17:55
[2023-03-03 14:27] VITALS: BP 130/59; PULSE 90; RESP 18; TEMP 36.6; O2SAT 100; BMI 30.2
--- NOTE | 2023-03-03 15:15 | ED.PSYCH ---
HPI - Psych General Chief Complaint: Psychiatric Symptoms Stated Complaint: anxiety Time Seen by Provider: 03/03/23 15:07 History of Present Illness HPI Narrative: Patient is a 38-year-old female presented today with having suicidal thoughts. Patient claims she had some earlier in the day. Especially after using crack. Patient denies any specific plans. At this time she is no longer suicidal she looks forward to taking care of her kids. She wants Xanax issues having lots of anxiety. Patient denies any fever chills any chest pain shortness of breath nausea vomiting Related Data Previous Rx's Medication Instructions Recorded alprazolam 1 mg tablet (Xanax) 1 mg PO BID PRN anxiety #10 tabs 08/31/22 alprazolam 1 mg tablet (Xanax) 1 mg PO BID PRN anxiety #6 tabs 08/31/22 aripiprazole 300 mg intramuscular 300 mg IM QMONTH #1 ea 08/31/22 suspension,extended release (Abilify Maintena) aripiprazole 300 mg suspension, 300 mg IM QMONTH #1 ea 08/31/22 extended rel. intramuscular syringe (Abilify Maintena) cyclobenzaprine 10 mg tablet 10 mg PO Q8H #14 tabs 11/08/22 nitrofurantoin 100 mg PO BID 7 days #14 caps 11/08/22 monohydrate/macrocrystals 100 mg capsule (Macrobid) nitrofurantoin 100 mg PO Q12H 7 days #14 caps 03/03/23 monohydrate/macrocrystals 100 mg capsule (Macrobid) Allergies Allergy/AdvReac Type Severity Reaction Status Date / Time amoxicillin [AMOXICILLIN] Allergy Intermediate HIVES Verified 03/03/23 14:27 epinephrine [EPINEPHRINE] Allergy Mild RASH Verified 03/03/23 14:27 ibuprofen [IBUPROFEN] Allergy Mild RASH, hives Verified 03/03/23 14:27 lidocaine [LIDOCAINE] Allergy Mild RASH Verified 03/03/23 14:27 hydromorphone [Dilaudid] Allergy Unknown anxiety Verified 03/03/23 14:27 morphine Allergy Unknown hives Verified 03/03/23 14:27 From REGLAN AdvReac Intermediate DYSPHORIA, Uncoded 03/03/23 14:27 RESTLESS From DILAUDID AdvReac Mild HIVES, Uncoded 07/07/23 14:27 SHAKINESS Review of Systems Review of Systems: Positive recreational drug use Yes all other systems are reviewed and are negative [facility] Past Medical History Attestation statement: The following information was validated with the patient. Physical Exam Vital Signs: Vital Signs: Last Vital Signs Temp 98 F 03/03/23 14:27 Pulse 90 03/03/23 14:27 Resp 18 03/03/23 14:27 BP 130/59 L 03/03/23 14:27 Pulse Ox 100 03/03/23 14:27 O2 Del Method Room Air 03/03/23 14:27 BMI result Body Mass Index 30.2 Appearance: Alert. Oriented X3. No acute distress. Eyes: Pupils equal, round and reactive to light. ENT: Pharynx normal. Neck: Normal inspection. Neck supple. No lymph nodes noted. No crepitus CVS: Normal heart rate and rhythm. Pulses normal. Normal S1 and S2 Respiratory: No respiratory distress. Breath sounds normal. No Wheezing. No rales Abdomen: Soft and nontender. No rigidity. No distention. good BS x4 Skin: Skin warm and dry. Normal skin color. Normal skin turgor. Extremities: No lower extremity edema. Neurovascular intact to all extremities. No Lacerations. No Rash Neuro: Oriented X 3. No motor deficit. No sensory deficit. Moving all extermities. No slurred speech. Cranial nerve intact Medications Administered Discontinued Medications Generic Name Dose Route Start Last Admin Trade Name Freq PRN Reason Stop Dose Admin Lorazepam 1 mg 03/03/23 14:27 03/03/23 14:54 Lorazepam 1 Mg Tablet PO 03/03/23 14:28 1 mg ONCE ONE Administration Medical Decision Making Medical Decision Making MDM Narrative: Well-appearing no acute distress. Positive suicidal ideation after using crack cocaine. Will have patient get seen by crisis. Patient's urine showed question infection. Will give antibiotics. In stable condition. First dose of Macrobid was given. Additional script Macrobid ordered. Differential Diagnosis Depression, polysubstance abuse, suicidal ideation Admission/Observation Consideration of admission/observation: Escalation of care including admission/observation considered Consult Healthcare Provider Management of the patient was discussed with: [facility] Crisis team Lab Data [facility] Lab Attestation statement: I reviewed the patient's lab results. Labs: Lab Results 03/03/23 03/03/23 03/03/23 Range/Units 14:50 14:50 14:50 Urine Color Yellow Urine Appearance Clear Urine pH 6.0 (5.0-9.0) Ur Specific [place] 1.015 (1.005-1.025) Urine Protein Trace (Neg-Trace) mg/dL Urine Glucose (UA) Negative (Negative) mg/dL Urine Ketones Negative (Negative) mg/dL Urine Blood Moderate (2+) H (Negative) Urine Nitrite Positive H (Negative) Ur Leukocyte Esterase Moderate (2+) H (Negative) Urine RBC 3-5 H (0-2) /HPF Urine WBC >50 H (0-5) /HPF Ur Squamous Epith Cells 0-2 (0-2) /HPF Urine Bacteria 4+ (None Seen) Hyaline Casts 0-2 (0-2) /LPF Urine Opiates Screen Not Detected (Not Detect) Urine Fentanyl Screen Not Detected (Not Detect) Ur Barbiturates Screen Not Detected (Not Detect) Ur Phencyclidine Scrn Not Detected (Not Detect) Ur Amphetamines Screen Not Detected (Not Detect) U Benzodiazepines Scrn Not Detected (Not Detect) Urine Cocaine Screen POSITIVE H (Not Detect) U Marijuana (THC) Screen Not Detected (Not Detect) COVID-19 (JOSE) Negative (Negative) COVID-19 Clin Com See Note Discharge Plan Discharge Clinical Impression: Substance abuse, Suicidal ideation, Urinary tract infection Patient Disposition: Home, Self-Care Instructions: Urinary Tract Infection in Women (DC) Prescriptions: New nitrofurantoin monohyd/m-cryst [Macrobid] 100 mg capsule 100 mg PO Q12H 7 Days Qty: 14 0RF Rx Instructions: must administer with a meal/food No Action Abilify Maintena 300 mg suspension,extended rel recon 300 mg IM QMONTH Qty: 1 0RF Abilify Maintena 300 mg suspension,extended rel syring 300 mg IM QMONTH Qty: 1 0RF alprazolam [Xanax] 1 mg tablet 1 mg PO BID PRN (Reason: anxiety) Qty: 10 0RF alprazolam [Xanax] 1 mg tablet 1 mg PO BID PRN (Reason: anxiety) Qty: 6 0RF nitrofurantoin monohyd/m-cryst [Macrobid] 100 mg capsule 100 mg PO BID 7 Days Qty: 14 0RF Rx Instructions: must administer with a meal/food cyclobenzaprine 10 mg tablet 10 mg PO Q8H Qty: 14 0RF
--- NOTE | 2023-03-03 16:18 | PHA.MEDREC ---
Pharmacy Consult ? Medication Reconciliation Pharmacy has completed the medication reconciliation. Pt states she should be on a thyroid medicine but was not sure of the dose, no recent claim history; uses [facility] in [place]
--- NOTE | 2023-03-03 20:16 | PC.NURSE ---
pt calm and cooperative, denies any SI or HI, gait steady
--- NOTE | 2023-03-04 15:15 | MHC.CARE ---
CARE Team made the urgent OP referral to [facility]. Pt will be contacted by [facility] with an appointment for OP therapy and an appointment for psychiatry in about a months time. Pt will be contacted at her new phone nuymber of [phone]. [facility] was given this number.
== END 2023-03-03 20:16 | disposition home or self-care (01) ==
PROVIDERS: Emergency Provider Emergency Medicine Emergency Medical Services
DX: R45.851 Suicidal ideations (principal); F33.1 Major depressive disorder, recurrent, moderate; N39.0 Urinary tract infection, site not specified; F14.10 Cocaine abuse, uncomplicated; F41.1 Generalized anxiety disorder; F43.0 Acute stress reaction; Z20.822 Contact with and (suspected) exposure to COVID-19; Z20.828 Contact with and (suspected) exposure to other viral communicable diseases
CPT/HCPCS: 80053; 80143; 80179; 80307; 81001; 83735; 85025; 87086; 87088; 87186; 87635; 99284; S9485

== ENCOUNTER 2023-03-20 15:45 | Emergency (ER) | payer MEDICAID, SELFPAY ==
[2023-03-20 15:47] VITALS: BP 115/60; PULSE 86; RESP 18; TEMP 36; O2SAT 100; BMI 29.3
--- NOTE | 2023-03-20 15:50 | ED.GENADULT ---
HPI - General Adult General Chief complaint: Allergic Reaction Stated complaint: swollen tongue and throat Time Seen by Provider: 03/20/23 15:52 Related Data Home Medications Medication Instructions Recorded Confirmed albuterol sulfate 90 mcg/actuation 1 inh inhalation QID PRN Wheezing 03/03/23 03/03/23 aerosol inhaler Previous Rx's Medication Instructions Recorded nitrofurantoin 100 mg PO Q12H 7 days #14 caps 03/03/23 monohydrate/macrocrystals 100 mg capsule (Macrobid) diphenhydramine HCl 25 mg capsule 25 mg PO Q8H 5 days #15 caps 03/20/23 (Benadryl) epinephrine 0.3 mg/0.3 mL 0.3 mg (0.3 mL) IM ONCE PRN 03/20/23 injection, auto-injector (EpiPen) extreme reaction #1 ea famotidine 20 mg tablet (Pepcid) 20 mg PO BID 5 days #10 tabs 03/20/23 prednisone 20 mg tablet 40 mg (2 x 20 mg) PO DAILY #10 tabs 03/20/23 Allergies Allergy/AdvReac Type Severity Reaction Status Date / Time amoxicillin [AMOXICILLIN] Allergy Intermediate HIVES Verified 03/20/23 15:47 epinephrine [EPINEPHRINE] Allergy Mild RASH Verified 03/20/23 15:47 ibuprofen [IBUPROFEN] Allergy Mild RASH, hives Verified 03/20/23 15:47 lidocaine [LIDOCAINE] Allergy Mild RASH Verified 03/20/23 15:47 hydromorphone [Dilaudid] Allergy Unknown anxiety Verified 03/20/23 15:47 morphine Allergy Unknown hives Verified 03/20/23 15:47 From REGLAN AdvReac Intermediate DYSPHORIA, Uncoded 03/03/23 14:27 RESTLESS From DILAUDID AdvReac Mild HIVES, Uncoded 03/03/23 14:27 SHAKINESS PMFSH Social History Social History Alcohol intake: never Smoked in Last 30 Days: Yes Use of substances other than those prescribed or required for medical reasons: No Substance Use Type: Crack/Cocaine Advance Directives: No Advance Directives Information Provided: No Physical Exam ED Vital Signs: Vital Signs - 24 hr 03/20/23 15:47 Temperature 96.8 F Pulse Rate 86 Respiratory Rate 18 Blood Pressure 115/60 Pulse Oximetry 100 Oxygen Delivery Method Room Air BMI result Body Mass Index 29.3 Course Course Course Narrative: RME- 38-year-old female presents for evaluation of swelling of her tongue. Patient reports that she was stung by a bee directly the tongue. She appears to have moderate left-sided edema to the tongue only. He does not have any known allergy to bee sting. Patient was brought back to room 1 immediately due to the facial swelling with potential airway involvement. Currently, the patient is managing her airway Medications Administered Discontinued Medications Generic Name Dose Route Start Last Admin Trade Name Freq PRN Reason Stop Dose Admin Diphenhydramine HCl 50 mg 03/20/23 16:00 03/20/23 16:10 Diphenhydramine Hcl 50 Mg/Ml Vial IVPUSH 03/20/23 16:01 50 mg ONCE ONE Administration Epinephrine 0.3 mg 03/20/23 16:00 03/20/23 16:07 Epinephrine 1 Mg/Ml Vial IM 03/20/23 16:01 0.3 mg STAT STA Administration Famotidine 20 mg 03/20/23 16:00 03/20/23 16:11 Famotidine/Pf 20 Mg/2 Ml Vial IVPUSH 03/20/23 16:01 20 mg ONCE ONE Administration Sodium Chloride 1,000 mls @ 999 mls/hr 03/20/23 16:00 03/20/23 17:37 Ns IV 03/20/23 17:00 Infused .Q1H1M ROBER Infusion Sodium Chloride 1,000 mls @ 999 mls/hr 03/20/23 16:15 03/20/23 17:37 Ns IV 03/20/23 17:15 Infused .Q1H1M ROBER Infusion Methylprednisolone Sodium Succinate 125 mg 03/20/23 16:01 03/20/23 16:08 Methylprednisolone Sod Succ 125 Mg/2 Ml Vial IVPUSH 03/20/23 16:02 125 mg ONCE ONE Administration Medical Decision Making Lab Data 03/20/23 16:25 03/20/23 16:25 Labs: Lab Results 03/20/23 Range/Units 16:25 WBC 11.7 H (4.8-10.8) X10*3/uL RBC 4.32 (4.20-5.50) X10*6/uL Hgb 11.3 L (12.0-16.0) g/dl Hct 35.5 L (37.0-47.0) % MCV 82.2 (80.0-98.0) fL MCH 26.2 L (27.0-33.0) pg MCHC 31.8 (31.0-35.0) g/dl RDW 13.6 (11.0-16.0) % Plt Count 249 (160-400) X10*3/uL MPV 11.1 (9.4-12.3) fL Immature Gran % (Auto) 0.4 (0.0-0.4) % Neut % (Auto) 52.7 (45-73) % Lymph % (Auto) 40.8 H (20-40) % [place] % (Auto) 5.0 (2-11) % Eos % (Auto) 0.8 (0-4) % Baso % (Auto) 0.3 (0-2) % Lymph # (Auto) 4.8 (1.2-4.9) X10*3/uL [place] # (Auto) 0.6 (0.1-1.2) X10*3/uL Eos # (Auto) 0.1 (0.0-0.4) X10*3/uL Baso # (Auto) 0.0 (0.0-0.2) X10*3/uL Abs Immat Gran (auto) 0.05 H (0.00-0.03) X10*3/uL Absolute Neuts (auto) 6.2 (2.0-8.3) x10*3/uL Absolute Nucleated RBC 0.000 (0.0-0.012) X10*3/uL Nucleated RBC % (auto) 0.0 (0.0-0.2) /100WBC Sodium 141 (135-145) mmol/L Potassium 3.3 (3.3-5.1) mmol/L Chloride 113 H (96-108) mmol/L Carbon Dioxide 22 (22-29) mmol/L Anion Gap 9 L (12-20) BUN 9 (9-16) mg/dL Creatinine 0.72 (0.5-1.4) mg/dL Estim Creat Clear Calc 92.9 Estimated GFR > 60 Random Glucose 104 (60-115) mg/dL Calcium 8.7 D (8.4-10.2) mg/dL Discharge Plan Discharge Clinical Impression: Anaphylaxis Patient Disposition: Home, Self-Care Instructions: General Allergic Reaction (ED) Prescriptions: New prednisone 20 mg tablet 40 mg PO DAILY Qty: 10 0RF famotidine [Pepcid] 20 mg tablet 20 mg PO BID 5 Days Qty: 10 0RF diphenhydramine HCl [Benadryl] 25 mg capsule 25 mg PO Q8H 5 Days Qty: 15 0RF epinephrine [EpiPen] 0.3 mg/0.3 mL auto-injector 0.3 mg IM ONCE PRN (Reason: extreme reaction) Qty: 1 0RF Rx Instructions: for 2 doses No Action nitrofurantoin monohyd/m-cryst [Macrobid] 100 mg capsule 100 mg PO Q12H 7 Days Qty: 14 0RF Rx Instructions: must administer with a meal/food albuterol sulfate 90 mcg/actuation Hfa Aerosol Inhaler 1 inh INHALATION QID PRN (Reason: Wheezing) Referrals: Physician,None [Primary Care Provider] - 03/22/23 Interventions: ED Discharge Assessment Last Done: 03/20/23 18:56 Discharge Date/Time: 03/20/23 18:57
[2023-03-20 16:00] VITALS: BP 119/66; PULSE 79; RESP 17; O2SAT 98
--- NOTE | 2023-03-20 16:05 | ED.GENADULT ---
HPI - General Adult General Chief complaint: Allergic Reaction Stated complaint: swollen tongue and throat Time Seen by Provider: 03/20/23 15:52 History of Present Illness HPI narrative: Patient is a 38-year-old female had a bee sting to the tongue. Complaining of pain and swelling. Patient from home. No chest pain or shortness of breath no diaphoresis. Related Data Home Medications Medication Instructions Recorded Confirmed albuterol sulfate 90 mcg/actuation 1 inh inhalation QID PRN Wheezing 03/03/23 03/03/23 aerosol inhaler Previous Rx's Medication Instructions Recorded nitrofurantoin 100 mg PO Q12H 7 days #14 caps 03/03/23 monohydrate/macrocrystals 100 mg capsule (Macrobid) diphenhydramine HCl 25 mg capsule 25 mg PO Q8H 5 days #15 caps 03/20/23 (Benadryl) epinephrine 0.3 mg/0.3 mL 0.3 mg (0.3 mL) IM ONCE PRN 03/20/23 injection, auto-injector (EpiPen) extreme reaction #1 ea famotidine 20 mg tablet (Pepcid) 20 mg PO BID 5 days #10 tabs 03/20/23 prednisone 20 mg tablet 40 mg PO DAILY #10 tabs 03/20/23 Allergies Allergy/AdvReac Type Severity Reaction Status Date / Time amoxicillin [AMOXICILLIN] Allergy Intermediate HIVES Verified 03/20/23 15:47 epinephrine [EPINEPHRINE] Allergy Mild RASH Verified 03/20/23 15:47 ibuprofen [IBUPROFEN] Allergy Mild RASH, hives Verified 03/20/23 15:47 lidocaine [LIDOCAINE] Allergy Mild RASH Verified 03/20/23 15:47 hydromorphone [Dilaudid] Allergy Unknown anxiety Verified 03/20/23 15:47 morphine Allergy Unknown hives Verified 03/20/23 15:47 From REGLAN AdvReac Intermediate DYSPHORIA, Uncoded 03/03/23 14:27 RESTLESS From DILAUDID AdvReac Mild HIVES, Uncoded 03/03/23 14:27 SHAKINESS Review of Systems Review of Systems: Positive Yes all other systems are reviewed and are negative [facility] Past Medical History Attestation statement: The following information was validated with the patient. Social History Social History Alcohol intake: never Smoked in Last 30 Days: Yes Use of substances other than those prescribed or required for medical reasons: No Substance Use Type: Crack/Cocaine Advance Directives: No Advance Directives Information Provided: No Physical Exam ED Vital Signs: Vital Signs - 24 hr 03/20/23 15:47 03/20/23 16:00 03/20/23 16:07 Temperature 96.8 F Pulse Rate 86 79 80 Respiratory Rate 18 17 Blood Pressure 115/60 119/66 119/66 Pulse Oximetry 100 98 Oxygen Delivery Method Room Air Room Air BMI result Body Mass Index 29.3 Appearance: Alert. Oriented X3. No acute distress. Eyes: Pupils equal, round and reactive to light. ENT: Pharynx normal. Positive swelling to the left home. There is no dental abscess palpable. The cheeks appear normal. Neck: Normal inspection. Neck supple. No lymph nodes noted. No crepitus CVS: Normal heart rate and rhythm. Pulses normal. Normal S1 and S2 Respiratory: No respiratory distress. Breath sounds normal. No Wheezing. No rales Abdomen: Soft and nontender. No rigidity. No distention. good BS x4 Skin: Skin warm and dry. Normal skin color. Normal skin turgor. Extremities: No lower extremity edema. Neurovascular intact to all extremities. No Lacerations. No Rash Neuro: Oriented X 3. No motor deficit. No sensory deficit. Moving all extermities. Speech was normal. Medications Administered Discontinued Medications Generic Name Dose Route Start Last Admin Trade Name Freq PRN Reason Stop Dose Admin Diphenhydramine HCl 50 mg 03/20/23 16:00 03/20/23 16:10 Diphenhydramine Hcl 50 Mg/Ml Vial IVPUSH 03/20/23 16:01 50 mg ONCE ONE Administration Epinephrine 0.3 mg 03/20/23 16:00 03/20/23 16:07 Epinephrine 1 Mg/Ml Vial IM 03/20/23 16:01 0.3 mg STAT STA Administration Famotidine 20 mg 03/20/23 16:00 03/20/23 16:11 Famotidine/Pf 20 Mg/2 Ml Vial IVPUSH 03/20/23 16:01 20 mg ONCE ONE Administration Sodium Chloride 1,000 mls @ 999 mls/hr 03/20/23 16:00 03/20/23 17:37 Ns IV 03/20/23 17:00 Infused .Q1H1M ROBER Infusion Sodium Chloride 1,000 mls @ 999 mls/hr 03/20/23 16:15 03/20/23 17:37 Ns IV 03/20/23 17:15 Infused .Q1H1M ROBER Infusion Methylprednisolone Sodium Succinate 125 mg 03/20/23 16:01 03/20/23 16:08 Methylprednisolone Sod Succ 125 Mg/2 Ml Vial IVPUSH 03/20/23 16:02 125 mg ONCE ONE Administration Medical Decision Making Medical Decision Making [facility] Narrative: Patient 38-year-old female got stung by a bee on her home. Complaining of pain mainly over the left tongue. Patient had some mild difficulty with speech. There is no difficulty swallowing. There is no shortness of breath. Given the location of the bee sting. Epinephrine, steroids, Benadryl, Pepcid was given. Patient monitor for the next 2 hours. Well appearing. Symptoms seems to have subsided. Posterior pharynx is now visible. Patient has no difficulty swallowing. No difficulty with shortness of breath. Will discharge patient home. Differential Diagnosis Differential Diagnoses: The differential diagnosis associated with the presentation includes Anaphylactic reaction, bee sting Lab Data [facility] Lab Attestation statement: I reviewed the patient's lab results. 03/20/23 16:25 03/20/23 16:25 Labs: Lab Results 03/20/23 03/20/23 Range/Units 16:25 16:25 WBC 11.7 H (4.8-10.8) X10*3/uL RBC 4.32 (4.20-5.50) X10*6/uL Hgb 11.3 L (12.0-16.0) g/dl Hct 35.5 L (37.0-47.0) % MCV 82.2 (80.0-98.0) fL MCH 26.2 L (27.0-33.0) pg MCHC 31.8 (31.0-35.0) g/dl RDW 13.6 (11.0-16.0) % Plt Count 249 (160-400) X10*3/uL MPV 11.1 (9.4-12.3) fL Immature Gran % (Auto) 0.4 (0.0-0.4) % Neut % (Auto) 52.7 (45-73) % Lymph % (Auto) 40.8 H (20-40) % [place] % (Auto) 5.0 (2-11) % Eos % (Auto) 0.8 (0-4) % Baso % (Auto) 0.3 (0-2) % Lymph # (Auto) 4.8 (1.2-4.9) X10*3/uL [place] # (Auto) 0.6 (0.1-1.2) X10*3/uL Eos # (Auto) 0.1 (0.0-0.4) X10*3/uL Baso # (Auto) 0.0 (0.0-0.2) X10*3/uL Abs Immat Gran (auto) 0.05 H (0.00-0.03) X10*3/uL Absolute Neuts (auto) 6.2 (2.0-8.3) x10*3/uL Absolute Nucleated RBC 0.000 (0.0-0.012) X10*3/uL Nucleated RBC % (auto) 0.0 (0.0-0.2) /100WBC Sodium 141 (135-145) mmol/L Potassium 3.3 (3.3-5.1) mmol/L Chloride 113 H (96-108) mmol/L Carbon Dioxide 22 (22-29) mmol/L Anion Gap 9 L (12-20) BUN 9 (9-16) mg/dL Creatinine 0.72 (0.5-1.4) mg/dL Estim Creat Clear Calc 92.9 Estimated GFR > 60 Random Glucose 104 (60-115) mg/dL Calcium 8.7 D (8.4-10.2) mg/dL Discharge Plan Discharge Clinical Impression: Anaphylaxis Patient Disposition: Home, Self-Care Instructions: General Allergic Reaction (ED) Prescriptions: New prednisone 20 mg tablet 40 mg PO DAILY Qty: 10 0RF famotidine [Pepcid] 20 mg tablet 20 mg PO BID 5 Days Qty: 10 0RF diphenhydramine HCl [Benadryl] 25 mg capsule 25 mg PO Q8H 5 Days Qty: 15 0RF epinephrine [EpiPen] 0.3 mg/0.3 mL auto-injector 0.3 mg IM ONCE PRN (Reason: extreme reaction) Qty: 1 0RF Rx Instructions: for 2 doses No Action nitrofurantoin monohyd/m-cryst [Macrobid] 100 mg capsule 100 mg PO Q12H 7 Days Qty: 14 0RF Rx Instructions: must administer with a meal/food albuterol sulfate 90 mcg/actuation Hfa Aerosol Inhaler 1 inh INHALATION QID PRN (Reason: Wheezing) Referrals: Physician,None [Primary Care Provider] - 03/22/23
[2023-03-20 16:07] VITALS: BP 119/66; PULSE 80
[2023-03-20] MEDS: EPINEPHrine 1 MG/ML VIAL 0.3 MG IM (16:07)
[2023-03-20] MEDS: methylPREDNISolone Sod Succ 125 MG/2 ML VIAL IVPUSH (16:08)
[2023-03-20] MEDS: 0.9 % Sodium Chloride 1,000 ML 999 ML IV ×2 (16:10→16:12)
[2023-03-20] MEDS: diphenhydrAMINE HCL 50 MG/ML VIAL IVPUSH (16:10)
[2023-03-20] MEDS: Famotidine/PF 20 MG/2 ML VIAL IVPUSH (16:11)
[2023-03-20 16:29] LABS: MANUAL DIFF FLAG NO
[2023-03-20 16:31] LABS: Basophils Percent Auto 0.3 % (0-2); Eosinophils Absolute Auto 0.1 X10*3/uL (0.0-0.4); Eosinophils Percent Auto 0.8 % (0-4); Hematocrit 35.5 % (37.0-47.0); Hemoglobin 11.3 g/dl (12.0-16.0); Imm Gran Abs Auto 0.05 X10*3/uL (0.00-0.03); Imm Gran Pct Auto 0.4 % (0.0-0.4); Lymphocytes Absolute Auto 4.8 X10*3/uL (1.2-4.9); Lymphocytes Percent Auto 40.8 % (20-40); Mean Corpuscular HGB Conc 31.8 g/dl (31.0-35.0); Mean Corpuscular Hemoglobin 26.2 pg (27.0-33.0); Mean Corpuscular Volume 82.2 fL (80.0-98.0); Mean Platelet Volume 11.1 fL (9.4-12.3); Monocytes Absolute Auto 0.6 X10*3/uL (0.1-1.2); Neutrophils Absolute Auto 6.2 x10*3/uL (2.0-8.3); Neutrophils Percent Auto 52.7 % (45-73); Platelet Count 249 X10*3/uL (160-400); Red Blood Count 4.32 X10*6/uL (4.20-5.50); Red Cell Distribution Width 13.6 % (11.0-16.0); White Blood Count 11.7 X10*3/uL (4.8-10.8)
[2023-03-20 16:50] LABS: Anion Gap 9 (12-20); Blood Urea Nitrogen 9 mg/dL (9-16); Calcium 8.7 mg/dL (8.4-10.2); Carbon Dioxide 22 mmol/L (22-29); Chloride 113 mmol/L (96-108); Creatinine Clr Calc Pharmacy 92.9; Estimated Glomerular Filt Rate > 60; Glucose Random 104 mg/dL (60-115); Potassium 3.3 mmol/L (3.3-5.1); Sodium 141 mmol/L (135-145)
--- NOTE | 2023-03-20 18:08 | PC.NURSE ---
On arrival pt noted with tongue swelling and swelling to left cheek after being stung by bee on hot dog, reported some diff breathing and painful swallowing. Pt medicated as charted. Now reports feeling better, swelling has decreased however still visible to cheek, requesting food.
== END 2023-03-20 18:57 | disposition home or self-care (01) ==
PROVIDERS: Emergency Provider Emergency Medicine Emergency Medical Services
DX: T63.441A Toxic effect of venom of bees, accidental (unintentional), initial encounter (principal); S00.562A Insect bite (nonvenomous) of oral cavity, initial encounter; Y93.89 Activity, other specified; Y92.9 Unspecified place or not applicable; Y99.9 Unspecified external cause status; Z79.899 Other long term (current) drug therapy
CPT/HCPCS: 36415; 80048; 85025; 96361; 96372; 96374; 96375; 99284; J0171; J1200; J2930